=== PATIENT | male | born 1980 | race Caucasian/White ===

== ENCOUNTER 2017-05-31 07:57 | Emergency (ER) | payer SELFPAY ==
--- NOTE | 2017-05-31 09:24 | RADIOLOGY REPORT (SQ) ---
EXAM DESCRIPTION: ANKLE RIGHT COMPLETE COMPLETED DATE/TIME: 05/31/2017 9:07 am REASON FOR STUDY: injury, pain COMPARISON: None. NUMBER OF VIEWS: Three views. TECHNIQUE: AP, lateral, and oblique radiographic images acquired of the right ankle. LIMITATIONS: None. FINDINGS: MINERALIZATION: Normal. BONES: Few calcific fragments adjacent to the tip of the lateral malleolus that may represent avulsio n fragments. JOINTS: No effusions. SOFT TISSUES: Moderate soft tissue swelling overlying the lateral malleolus. OTHER: No other significant finding. IMPRESSION: Soft tissue swelling overlying the lateral malleolus. Possible avulsion fragments adjac ent to the tip of the lateral malleolus. TECHNICAL DOCUMENTATION: JOB ID: [id number] [employer]- All Rights Reserved
--- NOTE | 2017-05-31 09:25 | RADIOLOGY REPORT (SQ) ---
EXAM DESCRIPTION: FOOT RIGHT COMPLETE COMPLETED DATE/TIME: 05/31/2017 9:07 am REASON FOR STUDY: injury, pain COMPARISON: None. NUMBER OF VIEWS: Three views. TECHNIQUE: AP, lateral and oblique radiographic images acquired of the right foot. LIMITATIONS: None. FINDINGS: MINERALIZATION: Normal. BONES: No acute fracture or dislocation. No worrisome bone lesions. JOINTS: No effusions. SOFT TISSUES: No soft tissue swelling. No foreign body. OTHER: No other significant finding. IMPRESSION: NEGATIVE STUDY OF THE RIGHT FOOT. NO RADIOGRAPHIC EVIDENCE OF ACUTE INJURY. TECHNICAL DOCUMENTATION: JOB ID: [id number] [employer]- All Rights Reserved
[2017-05-31] MEDS ORDERED: HYDROCODONE/ACETAMINOPHEN 5-325 MG (6 TAB/ER DISP) PO PRN (09:30)
--- NOTE | 2017-05-31 09:33 | ER Document Report ---
ED Extremity Problem, Lower - General Chief Complaint: Ankle Pain Stated Complaint: RIGHT ANKLE PAIN Time Seen by Provider: 05/31/17 08:45 Mode of Arrival: Ambulatory Information source: Patient Notes: Patient is a 36-year-old male who presents to the ER today for right ankle pain and swelling after rolling it prior to arrival. Patient states that he was walking whenever part of the sidewalk dipped down and he accidentally stepped in it rolling his ankle. Patient admits to hearing a crack. He admits to pain and swelling since that time. He denies any numbness or tingling. He states it hurts a lot to bear weight. TRAVEL OUTSIDE OF THE [place] IN LAST 30 DAYS: No - Related Data Allergies/Adverse Reactions: codeine [Codeine] Allergy (Verified 05/31/17 08:00) Hives paroxetine HCl [From Paxil] Allergy (Verified 05/31/17 08:00) Penicillins Allergy (Verified 05/31/17 08:00) bee sting Allergy (Uncoded 04/01/16 15:14) Past Medical History - General Information source: Patient - Social History Smoking Status: Current Every Day Smoker Chew tobacco use (# tins/day): No Frequency of alcohol use: None Drug Abuse: None Family History: None. denies: Arthritis, CAD, COPD, CVA, DM, Hyperlipidemia, Hypertension, Malignancy, Thyroid Disfunction Patient has suicidal ideation: No Patient has homicidal ideation: No Pulmonary Medical History: Reports: Hx Asthma Renal/ Medical History: Denies: Hx Peritoneal Dialysis Traumatic Medical History: Reports: Hx Fractures - ankle Past Surgical History: Reports: Hx Oral Surgery, Hx Orthopedic Surgery - left ankle - Immunizations Hx Diphtheria, Pertussis, Tetanus Vaccination: Yes Review of Systems - Review of Systems Constitutional: No symptoms reported EENT: No symptoms reported Cardiovascular: No symptoms reported Respiratory: No symptoms reported Gastrointestinal: No symptoms reported Genitourinary: No symptoms reported Male Genitourinary: No symptoms reported Musculoskeletal: See HPI Skin: No symptoms reported Hematologic/Lymphatic: No symptoms reported Neurological/Psychological: No symptoms reported Physical Exam - Vital signs Vitals: Temp Pulse Resp BP Pulse Ox 98.6 F 110 H 18 144/84 H 97 05/31/17 08:04 05/31/17 08:04 05/31/17 08:04 05/31/17 08:04 05/31/17 08:04 - Notes Notes: PHYSICAL EXAMINATION: GENERAL: Uncomfortable appearing, but in no acute distress. HEAD: Atraumatic, normocephalic. EYES: Pupils equal round and reactive to light, extraocular movements intact, sclera anicteric, conjunctiva are normal. NECK: Normal range of motion, supple without lymphadenopathy LUNGS: CTAB and equal. No wheezes rales or rhonchi. HEART: Regular rate and rhythm without murmurs ABDOMEN: Soft, no tenderness. No guarding, no rebound BACK: no vertebral tenderness, normal ROM GI/: no CVA tenderness EXTREMITIES: Limited range of motion of the right ankle secondary to pain and swelling, edema and ecchymosis noted to the lateral malleolus of the right ankle , tender to palpation, no pitting edema. No cyanosis. NEUROLOGICAL: Cranial nerves grossly intact. Normal sensory/motor exams. PSYCH: Normal mood, normal affect. SKIN: Warm, Dry, normal turgor, no rashes or lesions noted Course - Re-evaluation Re-evalutation: 05/31/17 10:15 Right ankle x-ray reports swelling over the lateral malleolus with possible avulsion fracture. Patient placed in ankle stirrup splint and given crutches. Patient given orthopedic follow-up. - Vital Signs Vital signs: Temp Pulse Resp BP Pulse Ox 98.2 F 91 18 139/89 H 94 05/31/17 09:48 05/31/17 09:48 05/31/17 08:04 05/31/17 09:48 05/31/17 09:48 Discharge - Discharge Clinical Impression: Avulsion fracture of ankle Qualifiers: Encounter type: initial encounter Fracture type: closed Laterality: right Qualified Code(s): S82.891A - Other fracture of right lower leg, initial encounter for closed fracture Condition: Stable Disposition: HOME, SELF-CARE Additional Instructions: Return immediately for any new or worsening symptoms. Follow up with primary care provider, call tomorrow to make followup appointment. Prescriptions: Hydrocodone/Acetaminophen [[place] 5-325 mg Tablet] 1 - 2 tab PO Q4 PRN #15 tablet PRN Reason: Forms: Return to Work Referrals: CHIOMA ALTMAN MD [ACTIVE STAFF] - Follow up as needed
[2017-05-31 09:50] VITALS: BP 139/89
== END 2017-05-31 09:56 | disposition home or self-care (01) ==
LOC: ER 07:57
DX: S82.891A Other fracture of right lower leg, initial encounter for closed fracture (principal); F17.200 Nicotine dependence, unspecified, uncomplicated; X50.0XXA Overexertion from strenuous movement or load, initial encounter; Z88.6 Allergy status to analgesic agent; Z88.0 Allergy status to penicillin; Z91.030 Bee allergy status
CPT/HCPCS: 99283; 73610; 73630; L1902

== ENCOUNTER 2017-08-26 12:05 | Emergency (ER) | payer SELFPAY ==
[2017-08-26 12:33] VITALS: BP 165/94
[2017-08-26] MEDS ORDERED: SULFAMETHOXAZOLE/TRIMETHOPRIM 800-160 MG TABLET PO ONE (13:33)
[2017-08-26] MEDS ORDERED: CEPHALEXIN 500 MG CAPSULE PO ONE (13:33)
--- NOTE | 2017-08-26 13:35 | ER Document Report ---
HPI - HPI Patient complains to provider of: Insect bite Onset: Other - 5 days Onset/Duration: Persistent Quality of pain: Achy Pain Level: 3 Context: Patient states he developed redness and swelling to the medial aspect of his left thigh 5 days ago. Patient reports that the area became tender and swollen. Patient states he put a needle in the swollen area yesterday and had a lot of drainage. Patient denies any fever. Patient denies any previous history of MRSA. Associated Symptoms: Other - Skin infection to leg. denies: Fever Exacerbated by: Denies Relieved by: Denies Similar symptoms previously: No Recently seen / treated by doctor: No - ROS ROS below otherwise negative: Yes Systems Reviewed and Negative: Yes All other systems reviewed and negative - CONSTITUTIONAL Constitutional: DENIES: Fever, Chills - GASTROINTESTINAL Gastrointestinal: DENIES: Nausea - REPRODUCTIVE Reproductive: DENIES: : - MUSCULOSKELETAL Musculoskeletal: REPORTS: Extremity pain. DENIES: Swelling - DERM Notes: Open wound to left leg Past Medical History - General Information source: Patient - Social History Smoking Status: Current Every Day Smoker Smoking Education Provided: Yes Frequency of alcohol use: None Drug Abuse: None Occupation: Construction Lives with: Family Family History: None. denies: Arthritis, CAD, COPD, CVA, DM, Hyperlipidemia, Hypertension, Malignancy, Thyroid Disfunction Pulmonary Medical History: Reports: Hx Asthma Renal/ Medical History: Denies: Hx Peritoneal Dialysis Traumatic Medical History: Reports: Hx Fractures - ankle Past Surgical History: Reports: Hx Oral Surgery, Hx Orthopedic Surgery - left ankle - Immunizations Hx Diphtheria, Pertussis, Tetanus Vaccination: Yes Vertical Provider Document - CONSTITUTIONAL Agree With Documented VS: Yes Exam Limitations: No Limitations General Appearance: WD/WN, No Apparent Distress - INFECTION CONTROL TRAVEL OUTSIDE OF THE [place] IN LAST 30 DAYS: No - HEENT HEENT: Atraumatic, Normocephalic - NECK Neck: Normal Inspection - RESPIRATORY Respiratory: Breath Sounds Normal, No Respiratory Distress - CARDIOVASCULAR Cardiovascular: Regular Rate, Regular Rhythm - BACK Back: Normal Inspection - MUSCULOSKELETAL/EXTREMETIES Musculoskeletal/Extremeties: FRANK WORTHY - NEURO Level of Consciousness: Awake, Alert, Appropriate Motor/Sensory: No Motor Deficit - DERM Integumentary: Warm, Dry, Abscess - Resolving abscess to left medial thigh, minimal erythema surrounding open wound Course - Re-evaluation Re-evalutation: 05/20/18 Patient with symptoms consistent with a resolving abscess status post incision and drainage performed at home with the use of the needle. Minimal erythema surrounding wound. Will place patient on a course of antibiotics and perform a wound culture. Patient nontoxic in appearance. Discussed wound care and symptoms to return immediately. Patient is agreeable with this plan of care. - Vital Signs Vital signs: Temp Pulse Resp BP Pulse Ox 98.5 F 91 18 165/94 H 97 08/26/17 12:30 08/26/17 12:30 08/26/17 12:30 08/26/17 12:32 08/26/17 12:30 Discharge - Discharge Clinical Impression: Abscess Condition: Stable Disposition: HOME, SELF-CARE Instructions: Abscess ([facility]), Cephalexin ([facility]), Trimethoprim-Sulfa ([facility]) Additional Instructions: Return immediately for any new or worsening symptoms Followup with your primary care provider, call tomorrow to make a followup appointment Prescriptions: Cephalexin Monohydrate [Keflex 500 mg Capsule] 500 mg PO Q6H 5 Days capsule Sulfamethoxazole/Trimethoprim [Bactrim Ds Tablet] 1 each PO BID #20 tablet Forms: Smoking Cessation Education Referrals: [facility] [Provider Group] - Follow up as needed
== END 2017-08-26 14:10 | disposition home or self-care (01) ==
LOC: ER 12:05
DX: L02.416 Cutaneous abscess of left lower limb (principal); Z86.14 Personal history of Methicillin resistant Staphylococcus aureus infection; F17.200 Nicotine dependence, unspecified, uncomplicated; J45.909 Unspecified asthma, uncomplicated
CPT/HCPCS: 87070; 87077; 87186; 87205; 99282

== ENCOUNTER 2020-01-02 11:31 | Emergency (ER) | payer SELFPAY ==
--- NOTE | 2020-01-02 12:12 | ER Document Report ---
ED Medical Screen (RME) - General Chief Complaint: Ankle Injury Stated Complaint: ANKLE INJURY Time Seen by Provider: 01/02/20 12:03 Notes: Patient is a 39-year-old male who presents emergency department with a chief complaint of left ankle pain. Patient reports a few days ago he twisted his left ankle. Patient reports developing redness and warmth to the foot and ankle since then. Patient states he does have an old injury with scarring to the medial left ankle with hardware. Patient reports increased swelling. Patient denies a history of MRSA or diabetes. TRAVEL OUTSIDE OF THE [place] IN LAST 30 DAYS: No - Related Data Allergies/Adverse Reactions: bupropion [From Wellbutrin] Allergy (Verified 01/02/20 12:03) codeine [Codeine] Allergy (Verified 01/02/20 12:03) Hives paroxetine HCl [From Paxil] Allergy (Verified 01/02/20 12:03) Penicillins Allergy (Verified 01/02/20 12:03) sertraline [From Zoloft] Allergy (Verified 01/02/20 12:03) venlafaxine [From Effexor] Allergy (Verified 01/02/20 12:03) bee sting Allergy (Uncoded 01/02/20 12:03) Past Medical History Pulmonary Medical History: Reports: Hx Asthma Renal/ Medical History: Denies: Hx Peritoneal Dialysis Traumatic Medical History: Reports: Hx Fractures - ankle Past Surgical History: Reports: Hx Oral Surgery, Hx Orthopedic Surgery - left ankle - Immunizations Hx Diphtheria, Pertussis, Tetanus Vaccination: Yes Physical Exam - Vital signs Vitals: Temp Pulse Resp BP Pulse Ox 98.3 F 119 H 20 129/77 H 99 01/02/20 11:48 01/02/20 11:48 01/02/20 11:48 01/02/20 11:48 01/02/20 11:48 Course - Re-evaluation Re-evalutation: 01/02/20 12:11 Heart rate was noted to be 119. Will obtain basic labs, blood cultures and an x-ray of the left ankle. Left ankle is swollen and medially with point tenderness to the malleolus. Skin is erythematous and warm to touch to the ankle and foot. There is no streaking of redness up the leg. - Vital Signs Vital signs: Temp Pulse Resp BP Pulse Ox 98.3 F 119 H 20 129/77 H 99 01/02/20 11:48 01/02/20 11:48 01/02/20 11:48 01/02/20 11:48 01/02/20 11:48
--- NOTE | 2020-01-02 12:53 | RADIOLOGY REPORT (SQ) ---
EXAM DESCRIPTION: ANKLE LEFT COMPLETE IMAGES COMPLETED DATE/TIME: 01/02/2020 12:44 pm REASON FOR STUDY: Ankle injury, + swelling COMPARISON: None. NUMBER OF VIEWS: Three views. TECHNIQUE: AP, lateral, and oblique radiographic images acquired of the left ankle. LIMITATIONS: Lateral film is rotated, cannot exclude ankle joint effusion FINDINGS: MINERALIZATION: Normal. BONES: No acute fracture or dislocation. No worrisome bone lesions. JOINTS: Grossly normal alignment at the ankle mortise. SOFT TISSUES: Diffuse medial malleolar soft tissue swelling. No foreign body. OTHER: No other significant finding. IMPRESSION: Diffuse medial malleolar soft tissue swelling. No gross acute fracture. TECHNICAL DOCUMENTATION: JOB ID: [id number] [employer]- All Rights Reserved Reading location - IP/workstation name: [id number]
[2020-01-02 14:42] LABS: ALKALINE PHOSPHATASE 141 U/L (38-126); ANION GAP 13 (5-19); ASPARTATE AMINO TRANSFERASE 63 U/L (17-59); BILIRUBIN,DIRECT 0.4 mg/dL (0.0-0.4); BLOOD UREA NITROGEN 17 mg/dL (7-20); CALCIUM 10.5 mg/dL (8.4-10.2); CARBON DIOXIDE 24 mmol/L (22-30); CHLORIDE 103 mmol/L (98-107); GLUCOSE 99 mg/dL (75-110); POTASSIUM 4.4 mmol/L (3.6-5.0); TOTAL PROTEIN 8.2 g/dL (6.3-8.2)
[2020-01-02] MEDS ORDERED: MORPHINE SULFATE 10 MG/ML INJ IV ONE (15:01)
[2020-01-02] MEDS ORDERED: NORMAL SALINE 1000 ML 1,000 ML IV ONE (15:01)
[2020-01-02] MEDS ORDERED: CLINDAMYCIN 600 MG/D5W RTU 600 MG/50 ML RTUPB IV ONE (15:03)
--- NOTE | 2020-01-02 15:06 | ER Document Report ---
ED Extremity Problem, Lower - General Chief Complaint: Ankle Injury Stated Complaint: ANKLE INJURY Time Seen by Provider: 01/02/20 12:03 Primary Care Provider: JOHN CASTRO MD [Primary Care Provider] - 01/05/20 Information source: Patient Notes: Patient states that he rolled his ankle 3 days ago. Patient states since then he has started to develop redness to the medial aspect of his left ankle that has extended to the top of his foot. Patient complains of pain with range of motion. Patient denies any fever. Patient states that last month he was treated for cellulitis to the lateral aspect of the left foot. Patient states that he has had previous surgery on this ankle in the past although no recent procedures. Patient states that he frequently walks around barefoot and did get a puncture wound from a step to the medial aspect of the foot recently. Patient states the puncture wound occurred after he rolled his ankle. TRAVEL OUTSIDE OF THE [place] IN LAST 30 DAYS: No - HPI Patient complains to provider of: Pain, Swelling Location: Ankle, Foot Occurred: Other - 3 days ago Where: Outdoors Onset/Duration: Worse Quality of pain: Sharp Pain Level: 5 Context: Other - Rolled ankle Recent injury: Yes Associated symptoms: Painful ambulation. denies: Fever, Unable to bear weight Exacerbated by: Movement, Walking Relieved by: Nothing - Related Data Allergies/Adverse Reactions: bupropion [From Wellbutrin] Allergy (Verified 01/02/20 12:03) codeine [Codeine] Allergy (Verified 01/02/20 12:03) Hives paroxetine HCl [From Paxil] Allergy (Verified 01/02/20 12:03) Penicillins Allergy (Verified 01/02/20 12:03) sertraline [From Zoloft] Allergy (Verified 01/02/20 12:03) venlafaxine [From Effexor] Allergy (Verified 01/02/20 12:03) bee sting Allergy (Uncoded 01/02/20 12:03) Past Medical History - General Information source: Patient - Social History Smoking Status: Current Every Day Smoker Frequency of alcohol use: None Drug Abuse: None Occupation: None Lives with: Family Family History: None. denies: Arthritis, CAD, COPD, CVA, DM, Hyperlipidemia, Hypertension, Malignancy, Thyroid Disfunction Pulmonary Medical History: Reports: Hx Asthma Renal/ Medical History: Denies: Hx Peritoneal Dialysis Musculoskeletal Medical History: Reports Hx Arthritis Psychiatric Medical History: Reports: Hx Anxiety Traumatic Medical History: Reports: Hx Fractures - ankle Past Surgical History: Reports: Hx Oral Surgery, Hx Orthopedic Surgery - left ankle - Immunizations Hx Diphtheria, Pertussis, Tetanus Vaccination: Yes Review of Systems - Review of Systems Constitutional: No symptoms reported. denies: Fever, Recent illness EENT: No symptoms reported Cardiovascular: No symptoms reported. denies: Chest pain, Dizziness Respiratory: No symptoms reported. denies: Cough Gastrointestinal: No symptoms reported. denies: Nausea, Vomiting Genitourinary: No symptoms reported Musculoskeletal: Joint pain - Left medial ankle pain with swelling, Ankle swelli ng. denies: Back pain Skin: Other - Redness to left foot and ankle Hematologic/Lymphatic: No symptoms reported Neurological/Psychological: No symptoms reported Physical Exam - Vital signs Vitals: Temp Pulse Resp BP Pulse Ox 98.3 F 119 H 20 129/77 H 99 01/02/20 11:48 01/02/20 11:48 01/02/20 11:48 01/02/20 11:48 01/02/20 11:48 - Notes Notes: PHYSICAL EXAMINATION: GENERAL: Tearful, anxious HEAD: Atraumatic, normocephalic. EYES: sclera anicteric, conjunctiva are normal. ENT: nares patent. Moist mucous membranes. NECK: Normal range of motion, supple without lymphadenopathy LUNGS: CTAB and equal. No wheezes rales or rhonchi. HEART: Tachycardia, normal rhythm EXTREMITIES: Erythema to left medial ankle that extends to the dorsum of the left foot with 1-2+ edema, tenderness with range of motion BACK: No CVA tenderness NEUROLOGICAL: Cranial nerves grossly intact. Normal speech. PSYCH: Tearful, mildly anxious SKIN: Warm, Dry, normal turgor, erythema to left foot and medial ankle, patient does have breaks in the skin in 2 places to the left foot Course - Re-evaluation Re-evalutation: 01/02/20 16:[address] oCnteh regarding patient presentation and evaluation. Suspect likely cellulitis given description of patient's symptoms. Dr. Conteh without any concern for septic arthritis. 01/02/20 18:09 Patient with erythema to the medial aspect of the left ankle with some faint streaking to the left lower leg. Patient has not been on any antibiotics, has not had a fever and does not have any leukocytosis at this time. Patient otherwise nontoxic in appearance. Patient has been given a dose of IV antibiotics here in good return precautions. Patient encouraged to return in 48 hours for recheck. Patient encouraged to return sooner for any worsening of symptoms. Patient verbalized understanding and is agreeable with discharge plan of care. - Vital Signs Vital signs: Temp Pulse Resp BP Pulse Ox 98.0 F 80 19 132/90 H 99 01/02/20 18:23 01/02/20 18:23 01/02/20 18:23 01/02/20 18:23 01/02/20 18:23 - Laboratory Result Diagrams: 01/02/20 16:04 01/02/20 13:47 Laboratory results interpreted by me: 01/02/20 01/02/20 01/02/20 13:47 13:57 16:04 MCH 34.1 H ESR Calcium 10.5 H AST 63 H ALT 58 H Alkaline Phosphatase 141 H C-Reactive Protein 50.4 H 01/02/20 16:04 MCH ESR 51 H Calcium AST ALT Alkaline Phosphatase C-Reactive Protein Labs- All tests 24 hr 01/02/20 01/02/20 01/02/20 13:47 13:47 13:57 WBC Cancelled RBC Cancelled Hgb Cancelled Hct Cancelled MCV Cancelled MCH Cancelled MCHC Cancelled RDW Cancelled Plt Count Cancelled Lymph % (Auto) Cancelled Walsh % (Auto) Cancelled Eos % (Auto) Cancelled Baso % (Auto) Cancelled Absolute Neuts (auto) Cancelled Absolute Lymphs (auto) Cancelled Absolute Monos (auto) Cancelled Absolute Eos (auto) Cancelled Absolute Basos (auto) Cancelled Seg Neutrophils % Cancelled Platelet Estimate Cancelled ESR Sodium 140.4 Potassium 4.4 Chloride 103 Carbon Dioxide 24 Anion Gap 13 BUN 17 Creatinine 0.87 Est GFR ( Amer) > 60 Est GFR (MDRD) Non-Af > 60 Glucose 99 Uric Acid 5.1 Calcium 10.5 H Total Bilirubin 1.0 Direct Bilirubin 0.4 Neonat Total Bilirubin Not Reportable Neonat Direct Bilirubin Not Reportable Neonat Indirect Bili Not Reportable AST 63 H ALT 58 H Alkaline Phosphatase 141 H C-Reactive Protein 50.4 H Total Protein 8.2 Albumin 5.0 Slides for Path Review Cancelled 01/02/20 01/02/20 16:04 16:04 WBC 8.9 RBC 4.58 Hgb 15.6 Hct 43.8 MCV 96 MCH 34.1 H MCHC 35.6 RDW 13.6 Plt Count 213 Lymph % (Auto) 29.4 Walsh % (Auto) 11.8 Eos % (Auto) 3.2 Baso % (Auto) 0.5 Absolute Neuts (auto) 4.9 Absolute Lymphs (auto) 2.6 Absolute Monos (auto) 1.0 Absolute Eos (auto) 0.3 Absolute Basos (auto) 0.0 Seg Neutrophils % 55.1 Platelet Estimate ESR 51 H Sodium Potassium Chloride Carbon Dioxide Anion Gap BUN Creatinine Est GFR ( Amer) Est GFR (MDRD) Non-Af Glucose Uric Acid Calcium Total Bilirubin Direct Bilirubin Neonat Total Bilirubin Neonat Direct Bilirubin Neonat Indirect Bili AST ALT Alkaline Phosphatase C-Reactive Protein Total Protein Albumin Slides for Path Review - Diagnostic Test Radiology reviewed: Image reviewed, Reports reviewed Discharge - Discharge Clinical Impression: Cellulitis Qualifiers: Site of cellulitis: extremity Site of cellulitis of extremity: lower extremity Laterality: left Qualified Code(s): L03.116 - Cellulitis of left lower limb Condition: Stable Disposition: HOME, SELF-CARE Instructions: Cellulitis ([facility]), Clindamycin ([facility]), Oral Narcotic Medication ([facility]) Additional Instructions: Return immediately for any new or worsening symptoms Followup with your primary care provider, call tomorrow to make a followup appointment Return in 48 hours for recheck, return sooner for any worsening of symptoms such as increased redness, fever, worsening pain or any concerning new problems Prescriptions: Clindamycin HCl 300 mg PO QID #28 capsule Tramadol HCl [Ultram 50 mg Tablet] 50 mg PO ASDIR PRN #8 tablet PRN Reason: Referrals: JOHN CASTRO MD [Primary Care Provider] - 01/05/20
[2020-01-02 16:38] LABS: ABSOLUTE EOSINOPHILS # (AUTO) 0.3 10^3/uL (0.0-0.6); ABSOLUTE LYMPHOCYTES (AUTO) 2.6 10^3/uL (0.5-4.7); ABSOLUTE NEUT (AUTO) 4.9 10^3/uL (1.7-8.2); BASOPHILS % (AUTO) 0.5 % (0-2); EOSINOPHILS % (AUTO) 3.2 % (0-6); HEMATOCRIT 43.8 % (37.9-51.0); HEMOGLOBIN 15.6 g/dL (13.5-17.0); LYMPHOCYTES % (AUTO) 29.4 % (13-45); MEAN CORPUSCULAR HEMOGLOBIN 34.1 pg (27.0-33.4); MEAN CORPUSCULAR HGB CONC 35.6 g/dL (32.0-36.0); MEAN CORPUSCULAR VOLUME 96 fl (80-97); MONOCYTES % (AUTO) 11.8 % (3-13); PLATELET COUNT 213 10^3/uL (150-450); RED BLOOD COUNT 4.58 10^6/uL (4.35-5.55); RED CELL DISTRIBUTION WIDTH 13.6 % (11.5-14.0); SEGMENTED NEUTROPHILS % (AUTO) 55.1 % (42-78); TOTAL CELLS COUNTED % (AUTO) 100 %; WHITE BLOOD COUNT 8.9 10^3/uL (4.0-10.5)
[2020-01-02 16:47] LABS: C-REACTIVE PROTEIN 50.4 mg/L (<10.0); URIC ACID 5.1 mg/dL (3.5-8.5)
[2020-01-02 18:23] VITALS: BP 132/90
== END 2020-01-02 18:24 | disposition home or self-care (01) ==
LOC: ER 11:31
DX: L03.116 Cellulitis of left lower limb (principal); S99.912A Unspecified injury of left ankle, initial encounter; X50.0XXA Overexertion from strenuous movement or load, initial encounter; F17.200 Nicotine dependence, unspecified, uncomplicated
CPT/HCPCS: 99284; 96361; 96375; 96365; 36415; 87040; 84550; 85025; 85652; 86140; 87077; 80053; 87150 ×26; 73610; J2270; J7030